=== PATIENT | male | born 1955 | race Caucasian/White ===

== ENCOUNTER 2023-04-16 11:53 | Outpatient (CLI) | payer MEDICARE ==
[2023-04-16 12:41] LABS: #Eosinphils 0.1 10x3/uL (0.0-0.5); #Monocytes 0.5 10x3/uL (0.0-1.1); #Neutrophils 3.7 10x3/uL (1.5-8.4); %Basophils 0.7 % (0.0-2.0); %Eosinophils 2.2 % (0.0-6.0); %Lymphocytes 25.1 % (18.0-47.0); %Monocytes 7.9 % (0.0-10.0); %Neutrophils 63.6 % (40.0-75.0); Hemoglobin 16.4 g/dL (13.5-17.5); Mean Corpuscular HGB CONC 34.2 g/dL (32.0-36.0); Mean Corpuscular Hemoglobin 31.5 pg (27.0-33.0); Mean Corpuscular Volume 92.1 fl (81.2-95.1); Mean Platelet Volume 9.8 fl (7.4-10.4); Platelet Count 234 10x3/uL (150-450); RBC Distribution Width 12.8 % (11.5-14.5); Red Blood Cell (RBC) Count 5.21 10x6/uL (4.32-5.72); White Blood Cell (WBC) Count 5.8 10x3/uL (3.5-10.5)
[2023-04-16 12:54] LABS: Anion Gap 15 mmol/L (10-20); BUN (Urea Nitrogen) 11 mg/dL (8.4-25.7); Calc. Creatinine Clearance 0 mL/min (70-130); Calcium 9.3 mg/dL (7.8-10.44); Carbon Dioxide 21 mmol/L (23-31); Chloride 107 mmol/L (98-107); Estimated GFR 95; Glucose 109 mg/dL (80-115); Potassium 4.1 mmol/L (3.5-5.1); Sodium 139 mmol/L (136-145)
== END 2023-04-16 11:54 | disposition home or self-care (01) ==
LOC: LABBT 11:53
PROVIDERS: ATTEND Specialist
DX: Z01.818 Encounter for other preprocedural examination (principal); K40.90 Unilateral inguinal hernia, without obstruction or gangrene, not specified as recurrent
CPT/HCPCS: 71046; 80048; 85025; 93005; 93010

== ENCOUNTER 2023-04-19 10:46 | Day surgery (SDC) | payer MEDICARE ==
[2023-04-16 12:35] VITALS: BMI 29.2
[2023-04-19] MEDS ORDERED: Bupivacaine 0.25% HCL 30 ML VIAL ONE (12:13)
[2023-04-19] MEDS ORDERED: EPINEPHrine 1 MG/ML AMP ONE (12:13)
[2023-04-19] MEDS ORDERED: Acetaminophen 500 MG TAB ONE (12:52)
[2023-04-19] MEDS ORDERED: Ketorolac Tromethamine 30 MG/ML VIAL ONE (12:52)
[2023-04-19] MEDS ORDERED: Sodium Chloride 0.9% 100 ML ONE (12:57)
[2023-04-19] MEDS ORDERED: CEFAZOLIN 2 GM VIAL ONE (12:57)
[2023-04-19] MEDS ORDERED: Fentanyl 250 MCG/5 ML VIAL ONE (13:06)
[2023-04-19] MEDS ORDERED: fentaNYL PF 100 MCG/2 ML SYRINGE ONE (13:24)
[2023-04-19] MEDS ORDERED: NEOSTIGMINE 3 MG/3 ML SYR 3 MG/3 ML SYRINGE ONE (13:48)
[2023-04-19] MEDS ORDERED: Ondansetron PF 4 MG/2 ML Vial ONE (13:48)
[2023-04-19] MEDS ORDERED: Lidocaine 1% PF 5 ML VIAL ONE (13:48)
[2023-04-19] MEDS ORDERED: Glycopyrrolate 0.2 MG/ML 5 ML SYRINGE ONE (13:48)
[2023-04-19] MEDS ORDERED: Rocuronium Bromide 10 MG/ML (10ML VIAL) ONE (13:48)
[2023-04-19] MEDS ORDERED: PROPOFOL 200 MG/20 ML VIAL ONE (13:48)
[2023-04-19] MEDS ORDERED: ePHEDrine Sulfate 50 MG/10 ML VIAL ONE (13:48)
== END 2023-04-19 18:15 | disposition home or self-care (01) ==
LOC: SDC 10:46
PROVIDERS: ATTEND Specialist
PROC: 0YU64JZ Supplement Left Inguinal Region with Synthetic Substitute, Percutaneous Endoscopic Approach (ICD-10-PCS; principal; 2023-04-19)
DX: K40.90 Unilateral inguinal hernia, without obstruction or gangrene, not specified as recurrent (principal); Z88.1 Allergy status to other antibiotic agents
CPT/HCPCS: 49650; C1781; J0171; J1885; J2405; J2704; J3010; J3490; S0020

== ENCOUNTER 2025-07-23 13:16 | Outpatient (CLI) | payer MEDICARE, BC | END 2025-07-23 13:17 | disposition home or self-care (01) | LOC: SCSMRI 13:16 | PROVIDERS: ATTEND Family Medicine | DX: M47.26 Other spondylosis with radiculopathy, lumbar region (principal); M24.812 Other specific joint derangements of left shoulder, not elsewhere classified; M24.811 Other specific joint derangements of right shoulder, not elsewhere classified; M48.061 Spinal stenosis, lumbar region without neurogenic claudication; M47.25 Other spondylosis with radiculopathy, thoracolumbar region; M47.27 Other spondylosis with radiculopathy, lumbosacral region; M48.07 Spinal stenosis, lumbosacral region; M75.112 Incomplete rotator cuff tear or rupture of left shoulder, not specified as traumatic; M19.012 Primary osteoarthritis, left shoulder; M75.111 Incomplete rotator cuff tear or rupture of right shoulder, not specified as traumatic; M19.011 Primary osteoarthritis, right shoulder; M25.48 Effusion, other site; R93.7 Abnormal findings on diagnostic imaging of other parts of musculoskeletal system | CPT/HCPCS: 70250; 72148 ==